=== PATIENT | female | born 1955 | race Caucasian/White ===

== ENCOUNTER 2019-10-24 08:00 | Outpatient (CLI) | payer OTHER, SELFPAY ==
--- NOTE | ~2019-10-24 | DEXA_ITS ---
Bone Density Report Name: Roxane Pearson Age: 63 Sex: Female Ethnicity: White Date of : 1955 Indication: postmenopausal; Referring Provider: WALTER ARNOLD Study: Bone densitometry was performed. Exam Date: October 24, 2019 Accession number: [id number] Bone Density: Region BMD T-score Z-score Classification AP Spine (L1, L3, L4) 1.051 0.0 1.6 Normal Femoral Neck (Left) 0.720 -1.2 0.2 Osteopenia Total Hip (Left) 0.932 -0.1 1.0 Normal Total Hip Bilateral Avg 0.944 0.0 1.1 Normal Femoral Neck (Right) 0.773 -0.7 0.7 Normal Total Hip (Right) 0.956 0.1 1.2 Normal World Health Organization criteria for BMD impression classify patients as: Normal (T-score at or above -1.0), Osteopenia (T-score between -1.0 and -2.5), or Osteoporosis (T-score at or below -2.5). 10-year Fracture Risk(1): Major Osteoporotic Fracture 7.6% Hip Fracture 0.6% Reported Risk Factors: [place] (), Neck BMD=0.720, BMI=31.8 (1) FRAX(R) Version 3.08. Fracture probability calculated for an untreated patient. Fracture probability may be lower if the patient has received treatment. Previous Exams: Region Exam Age BMD T-score BMD Change BMD Change Date g/cm2 vs Baseline vs Previous AP Spine(L1, L3, L4) 10/24/2019 63 1.051 0.0 -0.156(-12.9%) -0.030(-2.8%)* 07/17/2017 61 1.081 0.3 -0.126(-10.5%) -0.126(-10.5%) 05/09/2008 52 1.207 1.4 Total Hip(Left) 10/24/2019 63 0.932 -0.1 -0.027(-2.8%)# 0.030(3.4%)* 07/17/2017 61 0.901 -0.3 -0.057(-6.0%)# -0.057(-6.0%)# 05/09/2008 52 0.959 0.1 Total Hip(Right) 10/24/2019 63 0.956 0.1 -0.018(-1.8%)# 0.086(9.9%)* 07/17/2017 61 0.870 -0.6 -0.104(-10.7%) -0.104(-10.7%) 05/09/2008 52 0.974 0.3 *Denotes significance at 95% confidence level, LSC for AP Spine = 0.022 g/cm2, LSC for Total Hip = 0.027 g/cm2 Clinical Information Provided by Patient: Has used the following medications: Calcium Patient maximum height was 64 Menopause Age: 49 No regular weight bearing exercise Onset of menses at age 15 Number of children 3 Impression: The patient has low bone mass, based on the Left Femoral Neck T-score. The patient has an estimated ten-year risk of hip fracture of 0.6% and an estimated ten-year risk of major fracture of 7.6%, based on the WHO FRAX algorithm. The BMD for the AP Spine(L1, L3, L4) decreased, changing by -2.8% since the last DXA exam. Discussion: HILL
--- NOTE | ~2019-10-24 | MM_ITS ---
EXAMINATION: MM screening [facility] BI w kalyan HISTORY: Screening mammogram TECHNIQUE: Craniocaudal and mediolateral oblique 3-D tomosynthesis images were obtained and synthetic 2-D images were generated. CAD analysis was submitted and interpreted. COMPARISON: 11/08/2018, 10/08/2018, 07/17/2017, 06/14/2016 BREAST PARENCHYMAL COMPOSITION: There are scattered areas of fibroglandular density. FINDINGS: Areas of stable architectural distortion in the upper outer quadrant of the right breast is consistent with history of prior excisional biopsy. There is no evidence of suspicious mass, calcifi cation, or architectural distortion to suggest malignancy in either breast. There has been no suspici ous interval change. IMPRESSION: 1. No mammographic evidence of malignancy. 2. Recommend routine screening mammography in one year. BI-RADS Category 2: Benign finding(s). Reviewed, dictated and finalized at location A. ECTOR REPAIRER
== END 2019-10-24 08:01 | disposition home or self-care (01) ==
LOC: ANHIMG 08:03
PROVIDERS: PCP Internal Medicine; Visit Provider Obstetrics & Gynecology
DX: Z12.31 Encounter for screening mammogram for malignant neoplasm of breast (principal); Z78.0 Asymptomatic menopausal state; M85.852 Other specified disorders of bone density and structure, left thigh
CPT/HCPCS: 77063; 77067; 77080

== ENCOUNTER 2020-11-05 07:35 | Outpatient (CLI) | payer OTHER, SELFPAY ==
--- NOTE | ~2020-11-05 | MM_ITS ---
EXAMINATION: MM screening [facility] BI w kalyan HISTORY: Screening TECHNIQUE: Craniocaudal and mediolateral oblique 3-D tomosynthesis images were obtained and synthetic 2-D images were generated. CAD analysis was submitted and interpreted. COMPARISON: Comparison to multiple prior studies sequentially, with oldest reviewed study dated 06/14. BREAST PARENCHYMAL COMPOSITION: There are scattered areas of fibroglandular density. FINDINGS: There are subareolar asymmetries/nodules developing in both breasts. There is no evidence o f suspicious mass, calcification, or architectural distortion to suggest malignancy in either breast. There has been no suspicious interval change. IMPRESSION: 1. Developing bilateral subareolar nodules/asymmetries. 2. Additional mammographic views and possible breast ultrasound are recommended. BI-RADS Category 0: Incomplete: Needs additional imaging evaluation. Reviewed, dictated and finalized at location A. LER APPRENTICE IMPRESSION: 1. Developing bilateral subareolar nodules/asymmetries. 2. Additional mammographic views and possible breast ultrasound are recommended . BI-RADS Category 0: Incomplete: Needs additional imaging evaluation.
== END 2020-11-05 07:36 | disposition home or self-care (01) ==
LOC: ANHIMG 07:40
PROVIDERS: PCP Internal Medicine; Visit Provider Obstetrics & Gynecology
DX: Z12.31 Encounter for screening mammogram for malignant neoplasm of breast (principal); R92.8 Other abnormal and inconclusive findings on diagnostic imaging of breast
CPT/HCPCS: 77063; 77067

== ENCOUNTER 2020-12-02 11:50 | Outpatient (CLI) | payer OTHER, SELFPAY ==
--- NOTE | ~2020-12-02 | MM_ITS ---
EXAMINATION: MM diagnostic mammo BI HISTORY: Follow-up bilateral breast nodules TECHNIQUE: Additional 3-D tomosynthesis images of the breasts were performed and synthetic 2-D images were generated. CAD analysis was submitted and interpreted. COMPARISON: Comparison to multiple prior studies sequentially, with oldest reviewed study dated 06/19. BREAST PARENCHYMAL COMPOSITION: Breast composed of scattered areas of fibroglandular density. FINDINGS: In the upper outer quadrant of the right breast anteriorly there is a 1 cm partially circum scribed mass. No suspicious calcifications or architectural distortion in the right breast. In the mi d outer aspect of the left breast there is a persistent focal asymmetry which is more prominent than on prior examinations. No suspicious calcifications or architectural distortion. IMPRESSION: 1. Right breast mass and focal left breast asymmetry. 2. Bilateral breast ultrasound recommended. BI-RADS Category 0: Incomplete: Needs additional imaging evaluation. Reviewed, dictated and finalized at location A.
== END 2020-12-02 11:51 | disposition home or self-care (01) ==
PROVIDERS: PCP Internal Medicine; Visit Provider Obstetrics & Gynecology
DX: R92.8 Other abnormal and inconclusive findings on diagnostic imaging of breast (principal)
CPT/HCPCS: 77066

== ENCOUNTER 2020-12-27 15:59 | Outpatient (CLI) | payer OTHER, SELFPAY | END 2020-12-27 16:00 | disposition home or self-care (01) | LOC: ANHCOVIDVC 15:59 | PROVIDERS: PCP Internal Medicine | DX: Z23 Encounter for immunization (principal) | CPT/HCPCS: 0001A; 91300 ==

== ENCOUNTER 2020-12-31 12:01 | Outpatient (CLI) | payer OTHER, SELFPAY ==
--- NOTE | ~2020-12-31 | US_ITS ---
US breast BI complete 12/31/2020 13:00 Indication: Follow-up right breast mass and left breast asymmetry Procedure: High-resolution complete bilateral breast ultrasound Comparison: Mammogram dated 12/02/2020 Findings: Right breast complete ultrasound including all 4 quadrants: At 9:00, 1 cm from the nipple there is a 9 mm simple cyst. No suspicious masses to suggest malignancy. Complete left breast ultrasound including all 4 quadrants: Normal heterogeneous echotexture without f ocal solid or cystic mass. Impression: 1: Benign right breast cyst corresponding to the mammographic abnormality. Left breast asymmetry is m ost likely benign asymmetric fibroglandular tissue without sonographic correlate. No evidence for mal ignancy. Routine yearly screening mammogram and regular clinical breast examination are recommended. BI-RADS CATEGORY 2 - BENIGN FINDINGS Reviewed, dictated and finalized at location A. Impression: 1: Benign right breast cyst corresponding to the mammographic abnormality. Left breast asymmetry is most likely benign asymmetric fibroglandular tissue withou t sonographic correlate. No evidence for malignancy. Routine yearly screening mammogram and regular clinical breast examination are recommended. BI-RADS CATEGORY 2 - BENIGN FINDINGS
== END 2020-12-31 12:02 | disposition home or self-care (01) ==
PROVIDERS: PCP Internal Medicine; Visit Provider Obstetrics & Gynecology
DX: R92.8 Other abnormal and inconclusive findings on diagnostic imaging of breast (principal)
CPT/HCPCS: 76641

== ENCOUNTER 2021-01-17 16:14 | Outpatient (CLI) | payer OTHER, SELFPAY | END 2021-01-17 16:15 | disposition home or self-care (01) | LOC: ANHCOVIDVC 16:14 | PROVIDERS: PCP Internal Medicine | DX: Z23 Encounter for immunization (principal) | CPT/HCPCS: 0002A; 91300 ==

== ENCOUNTER → 2022-02-16 10:26 | Outpatient (CLI) | payer OTHER, SELFPAY ==
--- NOTE | ~2022-02-16 | XR_ITS ---
XR foot RT min 3V DATE: 02/16/2022 10:40 INDICATION: Right foot pain, distal first metatarsal TECHNIQUE: 4 views COMPARISON: 07/04/2008 right foot FINDINGS: There is joint space narrowing and prominent spurring at the first metatarsal phalangeal kat int consistent with severe osteoarthritic change. No fracture, dislocation, periosteal reaction or bone destruction. 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
== END ==
PROVIDERS: PCP Internal Medicine; Visit Provider Internal Medicine
DX: M19.071 Primary osteoarthritis, right ankle and foot (principal)
CPT/HCPCS: 73630

== ENCOUNTER 2022-03-10 14:44 | Outpatient (CLI) | payer OTHER, SELFPAY ==
--- NOTE | ~2022-03-10 | MM_ITS ---
EXAMINATION: MM screening [facility] BI w kalyan HISTORY: Screening TECHNIQUE: Craniocaudal and mediolateral oblique 3-D tomosynthesis images were obtained and synthetic 2-D images were generated. CAD analysis was submitted and interpreted. COMPARISON: Comparison to multiple prior studies sequentially, with oldest reviewed study dated 06/19. BREAST PARENCHYMAL COMPOSITION: The breasts are heterogeneously dense, which may obscure small masses . FINDINGS: There is no evidence of suspicious mass, calcification, or architectural distortion to sugg est malignancy in either breast. There has been no suspicious interval change. IMPRESSION: 1. No mammographic evidence of malignancy. 2. Recommend routine screening mammography in one year. BI-RADS Category 1: Negative Reviewed, dictated and finalized at location A.
== END 2022-03-10 14:45 | disposition home or self-care (01) ==
LOC: ANHIMG 14:46
PROVIDERS: PCP Internal Medicine; Visit Provider Obstetrics & Gynecology
DX: Z12.31 Encounter for screening mammogram for malignant neoplasm of breast (principal)
CPT/HCPCS: 77063; 77067

== ENCOUNTER 2022-05-31 11:46 | Day surgery (SDC) | payer OTHER, SELFPAY ==
[2022-05-12 11:37] VITALS: BMI 23.6
--- NOTE | 2022-05-30 07:41 | PM.HPGS ---
History of Present Illness History of Present Illness Consent: Risks, benefits, and alternatives have been discussed and questions answered. Patient agrees to proceed with procedure. Chief complaint: Neoplasm Screening Narrative: Roxane Pearson is a 66 year old female referered for colon cancer screening. Review of Systems Review of Systems: All systems reviewed & are unremarkable except as noted in HPI and below PMFSH Past Medical History Medical History History of vaginal delivery x3 White coat syndrome with high blood pressure but without hypertension Surgical History Surgical History History of partial thyroidectomy History of rotator cuff surgery Family History Family History Mother Hypertension Sibling Family history of obesity Hypertension Father Family history of lung disease Other Diabetes mellitus Family history of malignant neoplasm of male breast Social History Social History Smoking status: Never smoker Second hand tobacco smoke exposure: No Alcohol intake: current Substance use: never Substance use type: does not use Living arrangements: with family Spiritual care concerns: No Meds Home Medications and Allergies Home Medications Medication Instructions Recorded Confirmed Type calcium carbonate 600 mg calcium 600 mg PO DAILY 10/09/19 05/31/22 History (1,500 mg) tablet (Calcium) multivitamin (Daily Multi-Vitamin 1 tablet PO DAILY 10/09/19 05/31/22 History tablet) cetirizine 10 mg capsule (Zyrtec) 10 mg PO DAILY PRN Allergy Symptoms 11/30/20 05/31/22 History Allergies Allergy/AdvReac Type Severity Reaction Status Date / Time codeine AdvReac Nausea and Verified 05/31/22 12:05 Vomiting Exam Resp: Auscultation: clear to auscultation bilaterally Cardio: Rate: regular rate Rhythm: regular rhythm GI: GI Palp: Yes Soft to palpation and No Tenderness to palpation present (GI) Assessment and Plan Assessment and plan (1) Colon cancer screening: Code(s): Z12.11 - Encounter for screening for malignant neoplasm of colon Status: Acute Assessment and Plan: Colonoscopy with possible biopsy or polypectomy or cautery or injection of substances.
[2022-05-31 12:05] VITALS: BP 138/82; PULSE 86; RESP 20; TEMP 37.6; O2SAT 100
[2022-05-31] MEDS: LACTATED RINGERS 1,000 ML 150 ML IV CONT ×2 (12:30→14:17)
--- NOTE | 2022-05-31 13:21 | P.PNAN_ITS ---
Anes - Initial Pre Proc Eval Procedure: Operation Date: 05/31/22 13:30 Proposed Procedures p Screening Colonoscopy - Jose Hernandez MD Date/Time: 05/31/22 13:21 Surgeon: Jose Hernandez MD Pre Op Diagnosis: Neoplasm Screening Patient Data Age: 66 Gender: F Height: 1.63 m Weight: 63.2 kg Last Vital Signs Temp 37.6 C 05/31/22 12:05 Pulse 86 05/31/22 12:05 Resp 20 05/31/22 12:05 BP 138/82 05/31/22 12:05 Pulse Ox 100 05/31/22 12:05 O2 Del Method Room Air 05/31/22 12:05 Allergies Allergy/AdvReac Type Severity Reaction Status Date / Time codeine AdvReac Nausea and Verified 05/31/22 12:05 Vomiting Home Medications Medication Instructions Recorded Confirmed Type calcium carbonate 600 mg calcium 600 mg PO DAILY 10/09/19 05/31/22 History (1,500 mg) tablet (Calcium) multivitamin (Daily Multi-Vitamin 1 tablet PO DAILY 10/09/19 05/31/22 History tablet) cetirizine 10 mg capsule (Zyrtec) 10 mg PO DAILY PRN Allergy Symptoms 11/30/20 05/31/22 History Patient hx anesthesia problems: none Family hx anesthesia problems: none Results Review: All pre-operative results and documents have been reviewed as part of the pre- operative evaluation. [facility] Past Medical History Medical History History of vaginal delivery x3 White coat syndrome with high blood pressure but without hypertension Surgical History Surgical History History of partial thyroidectomy History of rotator cuff surgery Family History Family History Mother Hypertension Sibling Family history of obesity Hypertension Father Family history of lung disease Other Diabetes mellitus Family history of malignant neoplasm of male breast Social History Social History Smoking status: Never smoker Second hand tobacco smoke exposure: No Alcohol intake: current Substance use: never Substance use type: does not use Living arrangements: with family Spiritual care concerns: No Anes - Eval Final PreProcedure Day of Procedure 05/31/22 13:21 Patient weight: normal Heart: regular rate and rhythm Lungs: clear to auscultation Airway: Mallampati scale class II Neurological: alert and oriented Last oral intake: >/= 8 hours ASA classification: I Emergent: no Anesthetic plan: proceed Anesthesia type and monitoring: general GIVS and standard monitoring Results Review: All pre-operative results and documents have been reviewed as part of the pre- operative evaluation. Informed Consent: The patient's anesthetic plan and its attendant risks and benefits were discus sed with the patient/family/POA. Questions were solicited and answers provided to the satisfaction of the patient/family/POA.
[2022-05-31 13:44] VITALS: BP 101/78; PULSE 80; RESP 16; O2SAT 100
[2022-05-31 13:54] VITALS: BP 109/75; PULSE 68; RESP 20; O2SAT 100
[2022-05-31 14:04] VITALS: BP 121/80; PULSE 80; RESP 20; O2SAT 100
--- NOTE | 2022-05-31 14:12 | WPDANESPN ---
Anes - Prog Note Post-Op Date/Time: 05/31/22 14:12 Cardiovascular status: normal Respiratory status: normal Airway patency: baseline Mental status: baseline Post-Op hydration status: normal Vital Signs: Last Vital Signs Temp 37.6 C 05/31/22 12:05 Pulse 68 05/31/22 13:54 Resp 20 05/31/22 13:54 BP 109/75 05/31/22 13:54 Pulse Ox 100 05/31/22 13:54 O2 Del Method Room Air 05/31/22 13:54 Pain Score (VAS): 0 Patient Feedback: Patient satisfied with anesthetic care.
== END 2022-05-31 14:19 | disposition home or self-care (01) ==
PROVIDERS: PCP Family Medicine; Visit Provider Internal Medicine Gastroenterology
PROC: 0DJD8ZZ Inspection of Lower Intestinal Tract, Via Natural or Artificial Opening Endoscopic (ICD-10-PCS; CPT 45378; principal; 2022-05-31 13:30)
DX: Z12.11 Encounter for screening for malignant neoplasm of colon (principal)
CPT/HCPCS: 45378

== ENCOUNTER 2022-07-17 14:50 | Outpatient (CLI) | payer OTHER, SELFPAY ==
--- NOTE | ~2022-07-17 | DEXA_ITS ---
Bone Density Report Name: ADALBERTO KING Age: 66 Sex: Female Ethnicity: White Date of : 1955 Indication: postmenopausal; screening for osteoporosis; Referring Provider: WALTER ARNOLD Study: Bone densitometry was performed. Exam Date: July 17, 2022 Accession number: [id number] Bone Density: Region BMD T-score Z-score Classification AP Spine(L1, L3, L4) 1.083 0.3 2.1 Normal Femoral Neck (Left) 0.699 -1.3 0.2 Osteopenia Total Hip (Left) 0.892 -0.4 0.8 Normal Femoral Neck (Right) 0.758 -0.8 0.7 Normal Total Hip (Right) 0.881 -0.5 0.8 Normal Total Hip Mean 0.886 -0.5 0.8 Normal World Health Organization criteria for BMD impression classify patients as: Normal (T-score at or above -1.0), Osteopenia (T-score between -1.0 and -2.5), or Osteoporosis (T-score at or below -2.5). 10-year Fracture Risk(1): Major Osteoporotic Fracture 8.6% Hip Fracture 0.8% Reported Risk Factors: [place] (), Neck BMD=0.699, BMI=27.3 (1) FRAX(R) Version 3.08. Fracture probability calculated for an untreated patient. Fracture probability may be lower if the patient has received treatment. Clinical Information Provided by Patient: Patient maximum height was 65 Onset of menses at age 13 Number of children 3 Impression: The patient has low bone mass, based on the Left Femoral Neck T-score. The patient has an estimated ten-year risk of hip fracture of 0.8% and an estimated ten-year risk of major fracture of 8.6%, based on the WHO FRAX algorithm. Discussion: BONE DENSITY IS LOW AT ONE OR MORE SKELETAL SITES. This patient's lowest T-score is low at one or more skeletal sites. It meets the World Health Organization's (WHO) criteria for ?low bone mass? (T-score between -1.0 and -2.5). The patient's 10-year risk of fracture as calculated by FRAX is less than the threshold where pharmacological therapy is recommended by the National Osteoporosis Foundation (NOF). However, all treatment decisions require clinical judgment and consideration of individual patient factors, including patient preferences, comorbidities, previous drug use, risk factors not captured in the FRAX model (e.g., frailty, falls, vitamin D deficiency, increased bone turnover, interval significant decline in bone density) and possible under or overestimation of fracture risk by FRAX. The patient should follow a healthful lifestyle (good nutrition with adequate calcium and vitamin D, and appropriate weight-bearing exercise). Follow-Up: Consider repeating this study in 2 to 3 years to reassess this patient's status, or sooner if there is some new clinical indication. Reported by: ALEJANDRA on 07/17/2022 3:22:00 PM. Reviewed, dictated and finalized at location A.
== END 2022-07-17 14:51 | disposition home or self-care (01) ==
LOC: ANHIMG 14:51
PROVIDERS: PCP Family Medicine; Visit Provider Obstetrics & Gynecology
DX: Z78.0 Asymptomatic menopausal state (principal); M85.852 Other specified disorders of bone density and structure, left thigh
CPT/HCPCS: 77080

== ENCOUNTER 2022-08-17 00:27 | Day surgery (SDC) | payer OTHER, SELFPAY ==
--- NOTE | 2022-08-07 15:46 | PC.NURSE ---
Report to the Outpatient Waiting Room, entrance under the green pavilion located off [address], at time _0800 on date __08/17/22 . Planned Procedure Time:1000 . Time changes happen often and if your time is changed the preop area will call you the afternoon before. - You and your visitor will be asked to self-screen and do not enter if you have any COVID symptoms. - Only one visitor is requested with a max of two and NO children visitors are allowed at this time. - The patient visitor may be requested to leave or wait in car when not with patient due to distancing restrictions. - A mask is optional within the hospital. Patients may have clear liquids (water, carbonated beverages, clear teas, apple juice) until 3 hours prior to surgery with a maximum of 20 ounces. - No food from midnight until time of surgery - Infants may have breast milk until 4 hours before surgery, infant formula 6 hours prior to surgery. - Children will be allowed to drink immediately following surgery. If applicable, please bring a bottle or sippy cup to assist with drinking. Juice, water, soda, and popsicles are readily available. For infants on formula, please bring formula the day of surgery. Pacifiers are allowed. Take the following medications with a SIP of water the morning of surgery: ___NONE Medications to discontinue per physician ___IBUPROFEN 7 DAYS PRE OP, ALL VITAMINS AND SUPPLEMENTS 3 DAYS PRE OP Date to take last dose__IBUPROFEN 08/09/22___ALL VIT /SUPP 08/13/22 Please no make-up, nail turkish, hairspray, perfume, deodorant, or body powder the day of surgery. No jewelry (including any body piercings) or valuables the day of surgery, leave them at home. Please take a shower or bath the night before, or the morning of, surgery with an antibacterial soap. Wear comfortable, loose fitting clothing. Children are encouraged to wear pajamas. - Jewelry must be removed prior to entering the operating room. Rings and piercings that are not removed may be cut off. - The hospital will not accept responsibility for valuables. - Please leave all valuables, including medications, at home the day of surgery. If you are going home after surgery, a licensed parcel post truck driver must drive you home. - NO public transportation without another adult if you receive anesthesia. - We recommend that an adult stay with you for 24 hours following discharge. - We also recommend that you do not drive, make important decision, drink alcoholic beverages, or take any drugs that were not prescribed by your health care provider for at least 24 hours after your discharge time. For Pediatric surgeries, we recommend two adults accompany the child home. Follow any additional instructions given to you from your surgeon. If you or anyone in your household have experienced Covid symptoms in the past week, please notify your surgeon or the nurse liaison at the phone number below for possible testing. Telephone instructions given to __PATIENT and asked if any additional questions and then verbalized understanding. Patient advised to call surgeon office or pre surgery nurse liaison [phone] if any additional questions.
[2022-08-07 15:59] VITALS: BMI 24.5
--- NOTE | 2022-08-09 10:48 | PM.IMHP ---
H&P: HPI History of Present Illness Date/Time: 08/09/22 10:48 Chief Complaint: right hallux pain Narrative: Right foot pain. Pt states that she noticed the pain starting 5 years ago with NKI. Pt states that her pain over the years has started to worsen. Pt states that pain is located in the MTP1 joint/great toe and also experiences numbness/tingling after prolonged activity. Pt states that she has been doing RICE, ibuprofen, and limiting activity with some relief. Aggravating or associated factors: prolonged activity/walking. Review of Systems Constitutional: Constitutional: Denies fever(s) Eyes: Eyes: Denies blurry vision ENT: Reports Normal hearing present Cardiovascular: Cardiovascular: Denies chest pain and Denies dyspnea Respiratory: Respiratory: Denies dyspnea and Denies wheezing Gastrointestinal: Gastrointestinal: Denies abdominal pain Genitourinary: Genitourinary: Denies urinary urgency Musculoskeletal: Musculoskeletal: Reports as per HPI and Denies numbness Integumentary/Breasts: Skin/Breast: Denies changing lesions and Denies sores Neurologic: Reports Normal hearing present, Denies behavioral changes, Denies confusion, Denies numbness and Denies convulsions Psychiatric: Psychiatric: Denies behavioral changes, Denies confusion and Denies hallucinations Endocrine: Endocrine: Denies heat intolerance Hematologic/Lymphatic: Hematologic/Lymphatic: Denies easy bleeding Allergic/Immunologic: Allergic/Immunologic: Denies wheezing PMFSH Past Medical History Medical History Acquired hallux interphalangeus of right foot Hallux rigidus of right foot History of vaginal delivery x3 Osteopenia Pain of right great toe White coat syndrome with high blood pressure but without hypertension Surgical History Surgical History History of partial thyroidectomy History of rotator cuff surgery Family History Family History Mother Hypertension Sibling Family history of obesity Hypertension Father Family history of lung disease Other Arthritis Asthma Diabetes mellitus Family history of malignant neoplasm of male breast Social History Social History Smoking status: Never smoker Second hand tobacco smoke exposure: No Alcohol intake: current Substance use: never Substance use type: does not use Gender identity (if verbalized by the patient): Female Spiritual care concerns: No Meds Home Medications and Allergies Home Medications Medication Instructions Recorded Confirmed Type calcium carbonate 600 mg calcium 600 mg PO DAILY 10/09/19 08/07/22 History (1,500 mg) tablet (Calcium) multivitamin (Daily Multi-Vitamin 1 tablet PO DAILY 10/09/19 08/07/22 History tablet) cetirizine 10 mg capsule (Zyrtec) 10 mg PO DAILY PRN Allergy Symptoms 11/30/20 08/07/22 History Saccharomyces boulardii [Daily 1 tab-cap PO PRN PRN Constipation 07/04/22 08/07/22 History Probiotic (S. boulardii)] ibuprofen 400 mg tablet 400 mg PO Q6H PRN Pain 08/07/22 08/07/22 History melatonin 10 mg tablet 10 mg PO HS PRN Insomnia 08/07/22 08/07/22 History Allergies Allergy/AdvReac Type Severity Reaction Status Date / Time codeine AdvReac Nausea and Verified 08/07/22 15:35 Vomiting Exam Const: General: No confusion Orientation/consciousness: No confusion HENMT: Head: normal to inspection, normocephalic and atraumatic Eyes: Conjunctivae: conjunctivae normal Sclera: sclerae normal Neck: Neck: supple and nontender Chest: Chest palpation & inspection: normal inspection of the chest Resp: Effort & Inspection: normal respiratory effort and no audible wheezes Cardio: Rate: regular rate Rhythm: regular rhythm : General: Yes deferred Skin: General skin exam: no keven
[2022-08-17] VITALS (8 sets, daily range): BP systolic 106–128; BP diastolic 72–84; PULSE 69–80; RESP 12–20; TEMP 36.3–36.8; O2SAT 99–100
--- NOTE | ~2022-08-17 | XR_ITS ---
XR surgery orthopedic DATE: 08/17/2022 10:11 INDICATION: Right foot arthrodesis TECHNIQUE: 3 spot C-arm images of the forefoot 21 seconds total fluoroscopy exposure time 2.2968 cGycm2 total DAP COMPARISON: None FINDINGS: There is a threaded fixation device bridging the first metatarsal phalangeal joint. Dorsal plate and 3 screws are noted along the distal shaft, neck and head of the first metatarsal bon e, extending to the distal shaft of the proximal phalanx. There is expected immediately postoperative subcutaneous emphysema. IMPRESSION: Status post first metatarsophalangeal arthrodesis Reviewed, dictated and finalized at [facility]. Reviewed, dictated and finalized at location B. ISION REPAIRER
--- NOTE | 2022-08-17 07:02 | WPDHPUPDATE1 ---
History and Physical Update Update Date/Time: 08/17/22 07:02 History and Physical has been reviewed, including an updated exam of the patient. There are NO changes in the patient's condition. Risks, benefits, and alternatives have been discussed and questions answered. Patient agrees to proceed with procedure.
--- NOTE | 2022-08-17 08:39 | WPDANESEPPF ---
Anes - Initial Pre Proc Eval Procedure: Operation Date: 08/17/22 10:00 Proposed Procedures p Right Hallux Metatarsophalangeal Arthrodesis - Devon Dunn MD Date/Time: 08/17/22 08:39 Surgeon: Devon Dunn MD Pre Op Diagnosis: right hallux rigidus, arthritis, sesamoiditis Patient Data Age: 66 Gender: F Height: 1.63 m Weight: 68.3 kg Last Vital Signs Temp 36.8 C 08/17/22 08:02 Pulse 76 08/17/22 08:02 Resp 16 08/17/22 08:02 BP 128/84 08/17/22 08:02 Pulse Ox 100 08/17/22 08:02 O2 Del Method Room Air 08/17/22 08:02 Allergies Allergy/AdvReac Type Severity Reaction Status Date / Time codeine AdvReac Nausea and Verified 08/07/22 15:35 Vomiting Home Medications Medication Instructions Recorded Confirmed Type calcium carbonate 600 mg calcium 600 mg PO DAILY 10/09/19 08/07/22 History (1,500 mg) tablet (Calcium) multivitamin (Daily Multi-Vitamin 1 tablet PO DAILY 10/09/19 08/07/22 History tablet) cetirizine 10 mg capsule (Zyrtec) 10 mg PO DAILY PRN Allergy Symptoms 11/30/20 08/07/22 History Saccharomyces boulardii [Daily 1 tab-cap PO PRN PRN Constipation 07/04/22 08/07/22 History Probiotic (S. boulardii)] ibuprofen 400 mg tablet 400 mg PO Q6H PRN Pain 08/07/22 08/07/22 History melatonin 10 mg tablet 10 mg PO HS PRN Insomnia 08/07/22 08/07/22 History hydrocodone 5 mg-acetaminophen 325 1 tablet PO Q4-6H PRN pain #30 tabs 08/17/22 Rx mg tablet ondansetron 8 mg disintegrating 8 mg PO Q8H PRN nausea and 08/17/22 Rx tablet vomiting #10 tabs sennosides 8.6 mg-docusate sodium 1 tab-cap PO BID PRN constipation 08/17/22 Rx 50 mg tablet (Senna with Docusate #20 tabs Sodium) Patient hx anesthesia problems: none Family hx anesthesia problems: none Results Review: All pre-operative results and documents have been reviewed as part of the pre-operative evaluation. [facility] Past Medical History Medical History Acquired hallux interphalangeus of right foot Hallux rigidus of right foot History of vaginal delivery x3 Osteopenia Pain of right great toe White coat syndrome with high blood pressure but without hypertension Surgical History Surgical History History of partial thyroidectomy History of rotator cuff surgery Family History Family History Mother Hypertension Sibling Family history of obesity Hypertension Father Family history of lung disease Other Arthritis Asthma Diabetes mellitus Family history of malignant neoplasm of male breast Social History Social History Smoking status: Never smoker Second hand tobacco smoke exposure: No Alcohol intake: current Substance use: never Substance use type: does not use Living arrangements: with family Gender identity (if verbalized by the patient): Female Spiritual care concerns: No Anes - Eval Final PreProcedure Day of Procedure 08/17/22 08:39 Patient weight: overweight Heart: regular rate and rhythm Lungs: clear to auscultation Airway: Mallampati scale class II Neurological: alert and oriented Last oral intake: >/= 8 hours ASA classification: II Emergent: no Anesthetic plan: proceed Anesthesia type and monitoring: general LMA and standard monitoring Results Review: All pre-operative results and documents have been reviewed as part of the pre-operative evaluation. Informed Consent: The patient's anesthetic plan and its attendant risks and benefits were discussed with the patient/family/POA. Questions were solicited and answers provided to the satisfaction of the patient/family/POA.
[2022-08-17] MEDS: LACTATED RINGERS 1,000 ML 30 ML IV CONT (08:45)
[2022-08-17] MEDS: ACETAMINOPHEN 500 MG TABLET 1000 MG PO (08:45)
[2022-08-17] MEDS: KETOROLAC 15 MG/ML VIAL (*BKC) IV PUSH (08:45)
[2022-08-17] MEDS: ceFAZolin 2 GM/D5W 50 ML 2 GM/50 ML BAG IVPB (08:55)
[2022-08-17] MEDS: BUPIVACAINE HCL 0.5% PF 30 ML VIAL INFILTRATE (09:38)
--- NOTE | 2022-08-17 10:37 | W.PM.PROC2 ---
Procedure Note - Detailed Date of Procedure 08/17/22 Pre-op Diagnosis right hallux rigidus, arthritis, sesamoiditis Post-op Diagnosis Same Procedure Performed right hallux metatarsophalangeal arthrodesis Surgeon Devon Dunn MD Coffee Shop Manager 1st licensed physical therapist assistant Anesthesia General Indications 66-year-old woman with severe degenerative changes of the hallux metatarsophalangeal joint. Pain with daily activity and shoe wear. Presents for operative treatment. Findings complete loss of the articular surface metatarsal head and 75% of the phalangeal articular surface Description of Procedure Patient identified in the preoperative holding. Informed consent given. Operative extremity marked. Patient received intravenous antibiotics. Patient brought to the operating room where underwent general anesthetic by anesthesia team. Positioned supine on operating room table. Time-out performed confirming the patient, site of the surgery and the plan. Right foot prepped draped usual sterile surgical fashion using a ChloraPrep skin solution. Foot and ankle exsanguinated and a calf tourniquet inflated to 225 mmHg. Dorsal longitudinal incision made with 15 blade knife centered over the metatarsophalangeal joint of the hallux. Hemostasis controlled electrocautery. Extensor hallucis tendon retracted laterally and a dorsal capsulotomy performed in line with the longitudinal skin incision. Soft tissue released off of the metatarsal to expose the joint. Extensive scar and fibrosis of the joint noted. Rongeur used to remove excess osteophytes. Reaming of the joint then performed with the Arthrex joint preparation reamers. Guide pin placed center of metatarsal and reaming performed to size 18 mm. Guide pin then placed in the proximal phalanx and reaming performed to a size 18 mm. Wound thoroughly irrigated and debris removed. Joint then aligned and provisionally pinned. Alignment checked with image intensification. Joint fixation achieved with a dorsal locking plate with compression and a 3.5 mm lag screw. Image intensification confirmed final position. Wound irrigated and capsule closed with 0 Vicryl interrupted suture. Subcutaneous tissue repaired with 3-0 Monocryl interrupted suture and skin repaired with 4-0 nylon running suture. Sterile dressing applied. The patient was then awoken from anesthesia, extubated and taken to the recovery room in stable condition. All sponge, needle, instrument counts were correct at the end of the case. Implants Arthrex MTP arthrodesis plate with screws, 4.0 mm cannulated screw x1 Estimated Blood Loss 5 Tourniquet Time 62 Drains No Packing No Pathology None sent Complications None Condition Stable Disposition PACU
[2022-08-17] MEDS: fentaNYL CITRATE INJ (*CRX) 100 MCG/2 ML VIAL 25 MCG IV PUSH ×2 (11:16→11:27)
--- NOTE | 2022-08-17 13:04 | SUR.PHASEII ---
pt meets discharge criteria and is waiting on a post op boot
--- NOTE | 2022-08-17 13:38 | SUR.PHASEII ---
phil martinez went to get boot
== END 2022-08-17 13:30 | disposition home or self-care (01) ==
PROVIDERS: PCP Family Medicine; Visit Provider Orthopaedic Surgery
PROC: (CPT 28750; principal; 2022-08-17 10:00)
DX: M20.21 Hallux rigidus, right foot (principal); M19.071 Primary osteoarthritis, right ankle and foot; M25.871 Other specified joint disorders, right ankle and foot; M85.80 Other specified disorders of bone density and structure, unspecified site; E66.3 Overweight; Z68.25 Body mass index [BMI] 25.0-25.9, adult; F10.90 Alcohol use, unspecified, uncomplicated; Z79.1 Long term (current) use of non-steroidal anti-inflammatories (NSAID); Z79.899 Other long term (current) drug therapy; Z82.61 Family history of arthritis
CPT/HCPCS: 28750; 99199; A9270; C1713; C1769; J0171; J0690; J1100; J1885; J2250; J2370; J2405; J2704; J3010; J7120

== ENCOUNTER 2023-03-16 08:41 | Outpatient (CLI) | payer MEDICARE, SELFPAY ==
--- NOTE | ~2023-03-16 | MM_ITS ---
EXAMINATION: MM screening [facility] BI w kalyan HISTORY: Screening mammogram TECHNIQUE: Craniocaudal and mediolateral oblique 3-D tomosynthesis images were obtained and synthetic 2-D images were generated. CAD analysis was submitted and interpreted. COMPARISON: 03/06/2022 bilateral screening mammogram / bilateral complete breast ultrasound examination 12/02/2020 diagnostic right mammogram 11/05/2020, 10/24/2019 bilateral screening mammogram examinations BREAST PARENCHYMAL COMPOSITION: There are scattered areas of fibroglandular density. FINDINGS: Chronic stable mild fibroglandular asymmetry. This is likely due in part to history of prio r benign right breast biopsy. There is no evidence of suspicious mass, calcification, or architectura l distortion to suggest malignancy in either breast. There has been no suspicious interval change. IMPRESSION: 1. No mammographic evidence of malignancy. 2. Recommend routine screening mammography in one year. BI-RADS Category 2: Benign finding(s). Reviewed, dictated and finalized at location A.
== END 2023-03-16 08:42 | disposition home or self-care (01) ==
LOC: ANHIMG 08:42
PROVIDERS: PCP Family Medicine; Visit Provider Obstetrics & Gynecology
DX: Z12.31 Encounter for screening mammogram for malignant neoplasm of breast (principal)
CPT/HCPCS: 77063; 77067

== ENCOUNTER 2023-07-12 09:08 | Outpatient (CLI) | payer MEDICARE, SELFPAY ==
--- NOTE | 2023-07-31 18:20 | WPDSLEEPSTUD ---
Sleep Study Date of Study: 07/12/23 Ordering Provider: Florentin Haney DO Interpreting Physician: Yajaira Kapoor DO Sleep Study Type: Polysomnogram Height: 1.63 m Weight: 73.482 kg Body Mass Index: 27.8 Neck Circumference (inches): 13.5 Stuart: 12 Reason for Sleep Study The patient had a home sleep test by [facility] on 06/04/2023 that showed an AHI/NICOLA of 25 with desaturation down to 75%. She has had difficulty falling asleep and maintaining sleep for the past year. Sleep History The patient is a 67-year-old female with osteopenia and insomnia that had a sleep study ordered by her primary care physician for evaluation of insomnia. The patient frequently awakens at night with heartburn, belching or cough. The patient frequently snores loudly enough that others complain. She frequently has trouble sleeping when she has a cold. She occasionally wakes up gasping for air throughout the night. She occasionally has breathing problems at night observed by herself or others. She frequently sweats excessively at night. She denies having heart palpitations or irregular heartbeats during the night. She frequently falls asleep during the day but never while driving. She denies sleep paralysis, cataplexy and hypnagogic / hypnopompic hallucinations. She frequently has trouble at school or work due to sleepiness. She occasionally has nightmares and occasionally remembers her dreams. She constantly has thoughts racing through her mind. He rarely feels sad or depressed. She occasionally has anxiety. She rarely has muscular tension. She denies noticing parts of her body jerk. She denies kicking during the night. She denies having crawling and aching feelings in legs and denies having leg pain during the night. She denies grinding her teeth during sleep and denies awakening with morning jaw pain. She denies being bothered by pain during the day and denies being awakened by pain during night. She occasionally wakes up feeling stiff in the morning. She occasionally wakes up with sore or achy muscles. She occasionally wakes up with pain in the neck, spine or other joints. She goes to bed at 10:00 p.m. on weekdays and 11:00 p.m. on the weekends. It can take several hours for her to fall asleep. She wakes up 3-4 times throughout the night to urinate and can take up to 30 minutes for her to fall back asleep. She wakes up at 7:00 a.m. on weekdays and between 730-8 a.m. on the weekends. She typically gets 5-7 hours of sleep per night. She will stay in bed for 15 minutes after waking up in the morning. He currently lives with her . She denies consuming any caffeinated beverages within 2 hours of bedtime. She denies engaging in physical exercise before bedtime. She will read and watch television before falling asleep. She will take naps during afternoon or the evening but they are not refreshing. She denies consuming caffeinated beverages throughout the day. She denies tobacco, alcohol and recreational drug use. [facility] Past Medical History Medical History Acquired hallux interphalangeus of right foot Encounter for postoperative care Fusion of joint Hallux rigidus of right foot History of vaginal delivery x3 Osteopenia Pain of right great toe White coat syndrome with high blood pressure but without hypertension Surgical History Surgical History H/O foot surgery History of partial thyroidectomy History of rotator cuff surgery Family History Family History Mother Hypertension Sibling Family history of obesity Hypertension Father Family history of lung disease Other Arthritis Asthma Diabetes mellitus Family history of malignant neoplasm of male breast Social History Social History
[2023-07-31 18:35] VITALS: BMI 27.8
== END 2023-07-13 07:24 | disposition home or self-care (01) ==
LOC: ANHCSM 09:10
PROVIDERS: PCP Family Medicine; Visit Provider Family Medicine
DX: G47.00 Insomnia, unspecified (principal); G47.61 Periodic limb movement disorder; G47.33 Obstructive sleep apnea (adult) (pediatric)
CPT/HCPCS: 95810

== ENCOUNTER 2024-04-22 09:44 | Outpatient (CLI) | payer MEDICARE, SELFPAY ==
[2024-04-22 14:14] LABS: Basophils Absolute Auto 0.1 K/mm3 (0.0-0.1); Eosinophils Absolute Auto 0.1 K/mm3 (0-0.3); Hemoglobin 12.9 g/dL (12.0-15.0); Immature Granulocyte Absolute 0.01 K/mm3 (0.00-0.031); Immature Granulocyte Percent A 0.2 % (0-0.5); Lymphocytes Absolute Auto 1.72 K/mm3 (0.9-3.2); Lymphocytes Percent Auto 33.7 % (18.3-44.2); Mean Corpuscular HGB Conc 31.5 g/dl (32-36); Mean Corpuscular Hemoglobin 31.1 pg (26-34); Mean Corpuscular Volume 98.8 fl (80-100); Mean Platelet Volume 11.1 fl (7.4-10.4); Monocytes Absolute Auto 0.4 K/mm3 (0.1-0.6); Monocytes Percent Auto 7.5 % (2.6-8.5); Neutrophils Absolute Auto 2.8 K/mm3 (1.3-6.7); Neutrophils Percent Auto 55.6 % (45.5-73.1); Platelet Count Result 225 k/mm3 (150-375); Red Blood Count 4.15 M/mm3 (4.2-5.4); Red Cell Distribution Width 13.3 % (11.5-14.5); White Blood Count 5.1 K/mm3 (4.5-10.0)
[2024-04-22 14:25] LABS: Iron 116 ug/dL (37-170)
[2024-04-22 14:34] LABS: Percent Iron Saturation 36 % (20-50)
[2024-04-22 14:35] LABS: Alanine Aminotransferase 20 U/L (6-35); Albumin Level 4.4 g/dL (3.5-5.1); Alkaline Phosphatase 57 U/L (38-126); Anion Gap 10 mmol/L (4-12); Aspartate Amino Transferase 45 U/L (14-36); Bilirubin,Total 0.7 mg/dL (0.2-1.3); Blood Urea Nitrogen 25 mg/dL (7-17); Calcium 9.4 mg/dL (8.4-10.2); Carbon Dioxide 28 mmol/L (22-30); Chloride 101 mmol/L (98-107); Cholesterol 227 mg/dL (0-200); Estimated Glomerular Filt Rate > 60; Glucose 83 mg/dL (65-110); HDL Direct 62 mg/dL; Potassium 3.9 mmol/L (3.4-5.0); Sodium 139 mmol/L (137-145); Triglycerides 121 mg/dL (<150)
[2024-04-22 14:46] LABS: LDL Cholesterol Direct 114 mg/dL
== END 2024-04-22 09:45 | disposition home or self-care (01) ==
LOC: ANHGOSHLAB 09:47
PROVIDERS: PCP Family Medicine; Visit Provider Family Medicine
DX: D50.9 Iron deficiency anemia, unspecified (principal); Z13.228 Encounter for screening for other metabolic disorders; E78.5 Hyperlipidemia, unspecified; R53.83 Other fatigue
CPT/HCPCS: 36415; 80053; 80061; 82728; 83540; 83550; 85025

== ENCOUNTER 2024-05-28 09:52 | Outpatient (CLI) | payer MEDICARE, SELFPAY ==
--- NOTE | ~2024-05-28 | MM_ITS ---
EXAMINATION: MM screening [facility] BI w kalyan HISTORY: Screening mammogram TECHNIQUE: Craniocaudal and mediolateral oblique 3-D tomosynthesis images were obtained and synthetic 2-D images were generated. CAD analysis was submitted and interpreted. COMPARISON: 03/16/2023, 03/10/2022, 11/05/2020 BREAST PARENCHYMAL COMPOSITION:Not Dense. There are scattered areas of fibroglandular density. FINDINGS: Stable area of distortion at the upper right breast. No suspicious mass, calcification, or new architectural distortion are identified in either breast to suggest malignancy. There has been no suspicious interval change. IMPRESSION: No mammographic evidence of malignancy. Recommend routine screening mammography in one year. BI-RADS Category 2: Benign finding(s). Reviewed, dictated and finalized at [facility].
== END 2024-05-28 09:53 | disposition home or self-care (01) ==
LOC: ANHIMG 09:55
PROVIDERS: PCP Family Medicine; Visit Provider Obstetrics & Gynecology
DX: Z12.31 Encounter for screening mammogram for malignant neoplasm of breast (principal)
CPT/HCPCS: 77063; 77067

== ENCOUNTER 2025-06-12 09:39 | Outpatient (CLI) | payer MEDICARE, SELFPAY ==
--- NOTE | ~2025-06-12 | MM_ITS ---
EXAMINATION: MM screening [facility] BI w kalyan HISTORY: Screening TECHNIQUE: Craniocaudal and mediolateral oblique 3-D tomosynthesis images were obtained and synthetic 2-D images were generated. CAD analysis was submitted and interpreted. COMPARISON: Comparison to multiple prior studies sequentially, with oldest reviewed study dated , 10/24/2019 BREAST PARENCHYMAL COMPOSITION: There are scattered areas of fibroglandular density. FINDINGS: There is no evidence of suspicious mass, calcification, or architectural distortion to suggest malignancy in either breast. IMPRESSION: 1. No mammographic evidence of malignancy. 2. Recommend routine screening mammography in one year. BI-RADS Category 1: Negative Reviewed, dictated and finalized at location B.
--- OUTSIDE RECORDS SUMMARY | 2025-06-12 09:43 | XMS_ITS | Clinical Summary ---
Author Organization [facility] Address [address] [place] [address] Care Team Providers Care Pinsetter Mechanic Helper Name Role Phone Unavailable Primary Care Provider Unavailabl e Source Comments [facility],non-owned Affiliates and Associated Physician Practices is amultiple site organization consisting of ambulatory clinics and hospital sitesin [place], [place], [place] and [place]. This disclosure is being madepursuant to the Care Everywhere program and may not contain all information available regarding this patient. Last updated 18.[facility] Immunizations Immunization Administration Dates Next Due iNFLUENZA VACCINE, RECOM-TERRELL, QUADR. (FLUBLOCK QUADRIVALENT; 18Y+) (RIV4) 07/14/2018 Social History Tobacco Use Types Packs/Day Years Used Date Smoking Tobacco: Never Assessed Comments Unknown Sex and Gender Information Value Date Recorded Sex Assigned at Not on file Legal Sex Female 12:03 PM CDT Gender Identity Not on file Sexual Orientation Not on file Plan of Treatment Health Maintenance Due Date Last Done Comments BONE DENSITY TESTING 1955 COLOGUARD (AGES 45-75) - COL ON CA SCREENING 1955 COLON MONITORING 1955 COLONOSCOPY - COLON CA SCREENING 1956 CT COLONOGRAPHY - COLON CA SCREENING 1955 Colorectal Cancer Screening 1955 FIT - COLON CA SCREENING 1955 FLEX SIG - COLON CA SCREENING 1955 LIPID TESTING 1955 MAMMOGRAM 1955 HEPATITIS C SCREENING 11/30/1974 DTAP/TDAP/TD VACCINES (1 - Tdap) 12/05/1975 PNEUMOCOCCAL VACCINE 50+ (1 of 1 - PCV) 2006 ZOSTER VACCINE (1 of 2) 2006 DEPRESSION SCREENING 09/17/2024 COVID-19 VACCINE ( - 2023-2 5 season) 2025 INFLUENZA VACCINE (#1) 2025 07/14/2018 Respiratory Syncytial Virus (RSV) Vaccine Pt: or over 60 yrs (1 - 1-dose 75+ series) 12/05/2031 HEPATITIS B VACCINE Aged Out No longe r eligible based on patient's age to complete this topic HIB VACCINE Aged Out No longer eligi ble based on patient's age to complete this topic HPV VACCINE Aged Out No longer eligi ble based on patient's age to complete this topic MENINGOCOCCAL (Group B) VACC INE SHARED DECISION-MAKING Aged Out No longer eligibl e based on patient's age to complete this topic MENINGOCOCCAL GROUPS A/C/Y/W VACCINE Aged Out No longer eligible b ased on patient's age to complete this topic Insurance [place] [id number] [place] [address]
== END 2025-06-12 09:40 | disposition home or self-care (01) ==
LOC: ANHFOHIMG 09:40
PROVIDERS: PCP Family Medicine; Visit Provider Obstetrics & Gynecology
DX: Z12.31 Encounter for screening mammogram for malignant neoplasm of breast (principal)
CPT/HCPCS: 77063; 77067

== ENCOUNTER 2025-08-04 13:51 | Outpatient (CLI) | payer MEDICARE, SELFPAY ==
--- NOTE | ~2025-08-04 | DEXA_ITS ---
Bone Density Report Name: ADALBERTO KING Age: 69 Sex: Female Ethnicity: White Date of : 1955 Indication: postmenopausal; screening for osteoporosis; Referring Provider: YOU RITCHIE Study: Bone densitometry was performed. Exam Date: August 04, 2025 Accession number: [id number] Bone Density: Region BMD T-score Z-score Classification AP Spine(L1, L3, L4) 1.079 0.2 2.3 Normal Femoral Neck (Left) 0.718 -1.2 0.5 Osteopenia Total Hip (Left) 0.913 -0.2 1.2 Normal Femoral Neck (Right) 0.749 -0.9 0.8 Normal Total Hip (Right) 0.898 -0.4 1.1 Normal Total Hip Mean 0.905 -0.3 1.2 Normal World Health Organization criteria for BMD impression classify patients as: Normal (T-score at or above -1.0), Osteopenia (T-score between -1.0 and -2.5), or Osteoporosis (T-score at or below -2.5). 10-year Fracture Risk(1): Major Osteoporotic Fracture 9.0% Hip Fracture 1.0% Reported Risk Factors: [place] (), Neck BMD=0.718, BMI=27.3 (1) FRAX(R) Version 3.08. Fracture probability calculated for an untreated patient. Fracture probability may be lower if the patient has received treatment. Previous Exams: Region Exam Age BMD T-score BMD Change BMD Change Date g/cm2 vs Baseline vs Previous AP Spine (L1,L3-L4) 08/04/2025 69 1.079 0.2 -0.002 (-0.2%) -0.004 (-0.4%) 07/17/2022 66 1.083 0.3 0.002 (0.2%) 0.032 (3.0%)* 10/24/2019 63 1.051 0.0 -0.030 (-2.8%) -0.030 (-2.8%) 07/17/2017 61 1.081 0.3 Total Hip(Left) 08/04/2025 69 0.913 -0.2 0.012 (1.3%) 0.020 (2.3%) 07/17/2022 66 0.892 -0.4 -0.009 (-1.0%) -0.039 (-4.2%) 10/24/2019 63 0.932 -0.1 0.030 (3.4%)* 0.030 (3.4%)* 07/17/2017 61 0.901 -0.3 Total Hip(Right) 08/04/2025 69 0.898 -0.4 0.028 (3.2%)* 0.017 (2.0%) 07/17/2022 66 0.881 -0.5 0.011 (1.2%) -0.075 (-7.9%) 10/24/2019 63 0.956 0.1 0.086 (9.9%)* 0.086 (9.9%)* 07/17/2017 61 0.870 -0.6 *Denotes significance at 95% confidence level, LSC for AP Spine = 0.022 g/cm2, LSC for Total Hip = 0.027 g/cm2 Clinical Information Provided by Patient: Has used the following medications: Vitamin D, Calcium Patient maximum height was 65 Onset of menses at age 13 Number of children 3 Impression: The patient has low bone mass, based on the Left Femoral Neck T-score. The patient has an estimated ten-year risk of hip fracture of 1% and an estimated ten-year risk of major fracture of 9%, based on the WHO FRAX algorithm. No significant bone loss was observed. Discussion: BONE DENSITY IS LOW AT ONE OR MORE SKELETAL SITES. This patient's lowest T-score is low at one or more skeletal sites. It meets the World Health Organization's (WHO) criteria for ?low bone mass? (T-score between -1.0 and -2.5). The patient's 10-year risk of fracture as calculated by FRAX is less than the threshold where pharmacological therapy is recommended by the National Osteoporosis Foundation (NOF). However, all treatment decisions require clinical judgment and consideration of individual patient factors, including patient preferences, comorbidities, previous drug use, risk factors not captured in the FRAX model (e.g., frailty, falls, vitamin D deficiency, increased bone turnover, interval significant decline in bone density) and possible under or overestimation of fracture risk by FRAX. The patient should follow a healthful lifestyle (good nutrition with adequate calcium and vitamin D, and appropriate weight-bearing exercise). Follow-Up: Consider repeating this study in 2 to 3 years to reassess this patient's status, or sooner if there is some new clinical indication. Reported by: MIREYA on 08/04/2025 2:31:00 PM. Reviewed, dictated and finalized at location A.
== END 2025-08-04 13:52 | disposition home or self-care (01) ==
LOC: ANHFOHIMG 13:52
PROVIDERS: PCP Family Medicine; Visit Provider Nurse Practitioner Family
DX: M85.88 Other specified disorders of bone density and structure, other site (principal); Z78.0 Asymptomatic menopausal state; Z13.820 Encounter for screening for osteoporosis
CPT/HCPCS: 77080

== ENCOUNTER 2025-09-14 10:26 | Outpatient (CLI) | payer MEDICARE, SELFPAY ==
--- OUTSIDE RECORDS SUMMARY | 2025-09-14 10:55 | XMS_ITS | Clinical Summary ---
Author Organization [facility] Address [address] [place] [address] Care Team Providers Care Flat Folding Machine Operator Name Role Phone Unavailable Primary Care Provider Unavailabl e Source Comments [facility],non-owned Affiliates and Associated Physician Practices is amultiple site organization consisting of ambulatory clinics and hospital sitesin [place], [place], [place] and [place]. This disclosure is being madepursuant to the Care Everywhere program and may not contain all information available regarding this patient. Last updated 18.[facility] Immunizations Immunization Administration Dates Next Due iNFLUENZA [...] 2) 2006 DEPRESSION SCREENING 09/17/2024 COVID-19 VACCINE (1 - 2024-2 6 season) 2025 INFLUENZA VACCINE (#1) 2025 07/14/2018 [...] patient's age to complete this topic Insurance [place], [place] [id number] [place] [address] [place] [address]
[2025-09-14 13:40] LABS: Hematocrit 42.5 % (37.0-47.0); Hemoglobin 13.3 g/dL (12.0-15.0); Immature Granulocyte Percent A 0.3 % (0-0.5); Lymphocytes Absolute Auto 1.75 K/mm3 (0.9-3.2); Mean Corpuscular HGB Conc 31.3 g/dl (32-36); Mean Corpuscular Hemoglobin 30.6 pg (26-34); Mean Corpuscular Volume 97.9 fl (80-100); Nucleated Red Blood Cells Absolute Auto 0.000 K/mm3 (0.0-0.012); Nucleated Red Blood Cells Perc 0.0 % (0.0-0.2); Platelet Count Result 245 k/mm3 (150-375); Red Blood Count 4.34 M/mm3 (4.2-5.4); White Blood Count 5.8 K/mm3 (4.5-10.0)
[2025-09-14 14:01] LABS: Alanine Aminotransferase 31 U/L (6-35); Albumin Level 4.3 g/dL (3.5-5.1); Alkaline Phosphatase 73 U/L (38-126); Anion Gap 4 mmol/L (4-12); Aspartate Amino Transferase 42 U/L (14-36); Bilirubin,Total 0.6 mg/dL (0.2-1.3); Blood Urea Nitrogen 22 mg/dL (7-17); Calcium 9.4 mg/dL (8.4-10.2); Carbon Dioxide 30 mmol/L (22-30); Chloride 107 mmol/L (98-107); Cholesterol 258 mg/dL (0-200); Estimated Glomerular Filt Rate > 60; Glucose 82 mg/dL (65-110); HDL Direct 60 mg/dL; Potassium 4.0 mmol/L (3.4-5.0); Sodium 141 mmol/L (137-145); Total Protein 7.5 g/dL (6.3-8.2); Triglycerides 137 mg/dL (<150)
[2025-09-14 14:21] LABS: Hepatitis B Surface Antigen Negative (Negative)
[2025-09-14 14:26] LABS: HAV RESULT Negative (Negative); Hepatitis B Core IgM Result Negative (Negative)
== END 2025-09-14 10:27 | disposition home or self-care (01) ==
PROVIDERS: PCP Family Medicine; Visit Provider Family Medicine
DX: R74.8 Abnormal levels of other serum enzymes (principal); Z13.220 Encounter for screening for lipoid disorders; Z13.228 Encounter for screening for other metabolic disorders
CPT/HCPCS: 36415; 80053; 80061; 80074; 85025